=== PATIENT | female | born 1945 | race Caucasian/White ===

== ENCOUNTER 2021-11-24 12:58 | Outpatient (CLI) | payer MEDICARE | END 2021-11-24 12:59 | disposition home or self-care (01) | LOC: SCSRAD 12:58 | PROVIDERS: ATTEND Physician Assistant | DX: T17.908A Unspecified foreign body in respiratory tract, part unspecified causing other injury, initial encounter (principal); R05.1 Acute cough | CPT/HCPCS: 71046 ==